=== PATIENT | male | born 1955 | race Caucasian/White ===

== ENCOUNTER 2017-05-01 06:31 | Day surgery (SDC) | payer BC ==
[2017-05-01] MEDS ORDERED: PROPOFOL 500 MG/50 ML EMU IV ONE (06:47)
[2017-05-01] MEDS ORDERED: PROPOFOL 10 MG/ML EMU IV ONE ×2 (08:12→08:26)
[2017-05-01 09:18] VITALS: BP 123/71; PULSE 60; RESP 20; TEMP 97.2; O2SAT 96
== END 2017-05-01 09:30 | disposition home or self-care (01) ==
LOC: SURG 06:31
PROVIDERS: ATTEND Surgery
DX: Z12.11 Encounter for screening for malignant neoplasm of colon (principal); Z86.010 Personal history of colon polyps; K57.30 Diverticulosis of large intestine without perforation or abscess without bleeding; D12.4 Benign neoplasm of descending colon; D12.5 Benign neoplasm of sigmoid colon; D12.8 Benign neoplasm of rectum; K62.1 Rectal polyp; K63.5 Polyp of colon
CPT/HCPCS: 45385; 99001; J2704 ×2